=== PATIENT | male | born 1995 | race African-American/Black ===

== ENCOUNTER 2019-11-15 19:54 | Emergency (ER) | payer OTHER ==
--- NOTE | 2019-11-15 21:37 | ER ---
Nurse's Notes [facility] Name: Pippa Pepe Age: 24 yrs Sex: Male : 1995 Arrival Date: 11/15/2019 Time: 19:57 Bed 10 Private MD: Diagnosis: Acute pharyngitis Presentation: 11/15 20:20 Presenting complaint: Patient states: i got a cut on the top of my mouth I don't know rr5 what's the cause of it. now my left side of my face, throat and teeth hurts. pain score 7/10. denies fever or colds. Transition of care: patient was not received from another setting of care. Onset of symptoms was November 15, 2019. Risk Assessment: Do you want to hurt yourself or someone else? Patient reports no desire to harm self or others. Initial Sepsis Screen: Does the patient meet any 2 criteria? No. Patient's initial sepsis screen is negative. Does the patient have a suspected source of infection? No. Patient's initial sepsis screen is negative. Care prior to arrival: None. 20:20 Method Of Arrival: Ambulatory rr5 20:20 Acuity: TIERNEY 4 rr5 Historical: - Allergies: 20:23 No Known Allergies; rr5 - Home Meds: 20:23 None [Active]; rr5 - PMHx: 20:23 chronic urticaria; rr5 - PSHx: 20:23 femur surgery; rr5 - Immunization history:: Adult Immunizations up to date. - Social history:: Smoking status: Patient uses tobacco products, vape, Patient uses alcohol, occasionally. Patient/guardian denies using street drugs. - Ebola Screening: : Patient negative for fever greater than or equal to 101.5 degrees Fahrenheit, and additional compatible Ebola Virus Disease symptoms Patient denies exposure to infectious person Patient denies travel to an Ebola-affected area in the 21 days before illness onset. Screenin:35 Abuse screen: Denies threats or abuse. Denies injuries from another. Nutritional aa1 screening: No deficits noted. Tuberculosis screening: No symptoms or risk factors identified. Fall Risk None identified. Assessment: 20:35 General: Appears in no apparent distress. comfortable, Behavior is calm, cooperative, aa1 appropriate for age. Pain: Complains of pain in neck. Neuro: Level of Consciousness is awake, alert, obeys commands, Oriented to person, place, time, situation, Moves all extremities. Full function Gait is steady, Speech is normal. Respiratory: Airway is patent Respiratory effort is even, unlabored, Respiratory pattern is regular, symmetrical, Breath sounds are clear bilaterally. GI: No signs and/or symptoms were reported involving the gastrointestinal system. : No signs and/or symptoms were reported regarding the genitourinary system. EENT: Throat is clear Reports pain in mouth. Derm: Skin is intact, is healthy with good turgor, Skin is pink, warm \T\ dry. Musculoskeletal: Circulation, motion, and sensation intact. Capillary refill < 3 seconds. 21:44 Reassessment: Patient appears in no apparent distress at this time. Patient is alert, aa1 oriented x 3, equal unlabored respirations, skin warm/dry/pink. Discussed d/c \T\ f/u instructions with pt; denies questions or concerns at this time. Ambulatory to lobby with steady gait. Vital Signs: 20:22 BP 122 / 76; Pulse 88; Resp 17; Temp 98; Pulse Ox 98% ; Weight 113.4 kg; Height 6 ft. 0 rr5 in. (182.88 cm); Pain 7/10; 21:44 BP 119 / 71; Pulse 82; Resp 18; Temp 98.3; Pulse Ox 97% on R/A; Pain 5/10; aa1 20:22 Body Mass Index 33.91 (113.40 kg, 182.88 cm) rr5 ED Course: 19:57 Patient arrived in ED. cf2 19:58 Lauren Espinal FNP-C is [facility]. kb 19:58 Milind Barber MD is Attending Physician. kb 20:22 Triage completed. rr5 20:23 Arm band placed on. rr5 20:35 Patient has correct armband on for positive identification. Bed in low position. Call aa1 light in reach. 20:40 Carolann Cohen, OBIE is Primary Nurse. aa1 21:44 No provider procedures requiring assistance completed. Patient did not have IV access aa1 during this emergency room visit. Administered Medications: No medications were administered Outcome: 21:36 Discharge ordered by . kb 21:44 Discharged to home ambulatory, with significant other. aa1 21:44 Condition: good 21:44 Discharge instructions given to patient, significant other, Instructed on discharge instructions, follow up and referral plans. medication usage, Demonstrated understanding of instructions, follow-up care, medications. 21:46 Patient left the ED. aa1 Signatures: Lauren Espinal, NADYA BARRIENTOS-Carolann Martin RN RN aa1 Wade Hall RN RN rr5 Juan Francisco Vazquez cf2
--- NOTE | 2019-11-15 21:37 | EDPHYS ---
Physician Documentation [facility] Name: Pippa Pepe Age: 24 yrs Sex: Male : 1995 Arrival Date: 11/15/2019 Time: 19:57 Bed 10 Private MD: ED Physician Milind Barber HPI: 11/15 21:53 This 24 yrs old Black Male presents to ER via Ambulatory with complaints of Sore kb Throat, Headache. 21:53 The patient presents with sore throat. The patient describes throat pain as constant. kb Onset: The symptoms/episode began/occurred 4 day(s) ago. Severity of symptoms: At their worst the symptoms were mild, moderate, in the emergency department the symptoms are unchanged. Modifying factors: The symptoms are alleviated by nothing, the symptoms are aggravated by swallowing, Patient's oral intake status: good. Associated signs and symptoms: Pertinent positives: Sore throat. The patient has not experienced similar symptoms in the past. The patient has not recently seen a physician. Pt reports he cut the roof of his mouth on Friday and since then he has been having a sore throat and headache. Small abrasion noted to hard palate that is healing.. Historical: - Allergies: 20:23 No Known Allergies; rr5 - Home Meds: 20:23 None [Active]; rr5 - PMHx: 20:23 chronic urticaria; rr5 - PSHx: 20:23 femur surgery; rr5 - Immunization history:: Adult Immunizations up to date. - Social history:: Smoking status: Patient uses tobacco products, vape, Patient uses alcohol, occasionally. Patient/guardian denies using street drugs. - Ebola Screening: : Patient negative for fever greater than or equal to 101.5 degrees Fahrenheit, and additional compatible Ebola Virus Disease symptoms Patient denies exposure to infectious person Patient denies travel to an Ebola-affected area in the 21 days before illness onset. ROS: 21:51 Constitutional: Negative for fever, chills, and weight loss, Neck: Negative for injury, kb pain, and swelling, Cardiovascular: Negative for chest pain, palpitations, and edema, Respiratory: Negative for shortness of breath, cough, wheezing, and pleuritic chest pain, Abdomen/GI: Negative for abdominal pain, nausea, vomiting, diarrhea, and constipation, Back: Negative for injury and pain, MS/Extremity: Negative for injury and deformity, Skin: Negative for injury, rash, and discoloration. 21:51 ENT: Positive for sore throat. 21:51 Neuro: Positive for headache. Exam: 21:52 Constitutional: This is a well developed, well nourished patient who is awake, alert, kb and in no acute distress. Head/Face: Normocephalic, atraumatic. Neck: Trachea midline, no thyromegaly or masses palpated, and no cervical lymphadenopathy. Supple, full range of motion without nuchal rigidity, or vertebral point tenderness. No Meningismus. Chest/axilla: Normal chest wall appearance and motion. Nontender with no deformity. No lesions are appreciated. Cardiovascular: Regular rate and rhythm with a normal S1 and S2. No gallops, murmurs, or rubs. Normal PMI, no JVD. No pulse deficits. Respiratory: Lungs have equal breath sounds bilaterally, clear to auscultation and percussion. No rales, rhonchi or wheezes noted. No increased work of breathing, no retractions or nasal flaring. Abdomen/GI: Soft, non-tender, with normal bowel sounds. No distension or tympany. No guarding or rebound. No evidence of tenderness throughout. Skin: Warm, dry with normal turgor. Normal color with no rashes, no lesions, and no evidence of cellulitis. MS/ Extremity: Pulses equal, no cyanosis. Neurovascular intact. Full, normal range of motion. Neuro: Awake and alert, GCS 15, oriented to person, place, time, and situation. Cranial nerves II-XII grossly intact. Motor strength 5/5 in all extremities. Sensory grossly intact. Cerebellar exam normal. Normal gait. 21:52 ENT: External ear(s): are unremarkable, Ear canal(s): are normal, TM's: are normal, Nose: is normal, Mouth: is normal, Posterior pharynx: Airway: normal, Tonsils: bilaterally enlarged, with erythema, Uvula: normal, midline, swelling, that is mild, erythema, that is mild, exudate, is not appreciated. Vital Signs: 20:22 BP 122 / 76; Pulse 88; Resp 17; Temp 98; Pulse Ox 98% ; Weight 113.4 kg; Height 6 ft. 0 rr5 in. (182.88 cm); Pain 7/10; 21:44 BP 119 / 71; Pulse 82; Resp 18; Temp 98.3; Pulse Ox 97% on R/A; Pain 5/10; aa1 20:22 Body Mass Index 33.91 (113.40 kg, 182.88 cm) rr5 MDM: 20:26 Patient medically screened. kb 21:48 Data reviewed: vital signs, nurses notes. Data interpreted: Pulse oximetry: on room air kb is 97 %. Interpretation: normal. Counseling: I had a detailed discussion with the patient and/or guardian regarding: the historical points, exam findings, and any diagnostic results supporting the discharge/admit diagnosis, lab results, the need for outpatient follow up, a family practitioner, to return to the emergency department if symptoms worsen or persist or if there are any questions or concerns that arise at home. 11/15 20:06 Order name: Strep; Complete Time: 21:04 kb 11/15 21:11 Order name: Throat Culture EDMS Administered Medications: No medications were administered Disposition: 11/16 01:24 Co-signature as Attending Physician, Milind Barber MD. subhash Disposition: 11/15/19 21:36 Discharged to Home. Impression: Acute pharyngitis. - Condition is Stable. - Discharge Instructions: Pharyngitis, [id number], Sore Throat, [id number]. - Medication Reconciliation Form, Thank You Letter, Antibiotic Education, Prescription Opioid Use form. - Follow up: Emergency Department; When: As needed; Reason: Worsening of condition. Follow up: Private Physician; When: 2 - 3 days; Reason: Recheck today's complaints, Continuance of care, Re-evaluation by your physician. Signatures: Dispatcher [employer] EDMS Lauren Espinal, [employer]-Carolann Martin RN RN aa1 Milind Barber MD MD pkl Wade Hall RN RN rr5 Corrections: (The following items were deleted from the chart) 11/15 21:46 21:36 11/15/2019 21:36 Discharged to Home. Impression: Acute pharyngitis. Condition is aa1 Stable. Forms are Medication Reconciliation Form, Thank You Letter, Antibiotic Education, Prescription Opioid Use. Follow up: Emergency Department; When: As needed; Reason: Worsening of condition. Follow up: Private Physician; When: 2 - 3 days; Reason: Recheck today's complaints, Continuance of care, Re-evaluation by your physician. kb
[2019-11-15 23:43] VITALS: BP 119/71; TEMP 98.3; O2SAT 97
== END 2019-11-15 21:46 | disposition home or self-care (01) ==
LOC: ER 19:54
DX: J02.9 Acute pharyngitis, unspecified (principal); R51 Headache; F17.290 Nicotine dependence, other tobacco product, uncomplicated
CPT/HCPCS: 87070; 87081; 99281